=== PATIENT | female | born 1965 | race Two or more races ===

== ENCOUNTER 2017-07-17 16:52 | Emergency (ER) | payer MEDICAID, OTHER ==
[~2017-07-17] VITALS: Ht 157.5 cm; Wt 49.9 kg
[2017-07-17] MEDS ORDERED: Morphine Sulfate 4mg/ml Inj IVP ONE (18:15)
--- NOTE | 2017-07-17 18:19 | Emergency Room Report ---
History of Present Illness General Chief Complaint: Abdominal Pain Source: Patient Present Illness HPI 52yo F Complaint of abdominal pain and diarrhea for the past 2 days She recently had flu symptoms with myalgias and cough which have now resolved a few days ago She reports nausea but no vomiting She reports her abdominal pain is diffuse and crampy and constant She denies recent antibiotic use or change medications She reports no shortness of breath or chest pain or current myalgias She also denies urinary symptoms or back pain and denies leg pain or leg swelling She denies SEP or estrogen use or recent travel Allergies: Coded Allergies: No Known Allergies (Unverified , 07/17/17) Patient History Past Medical History: see triage record Last Menstrual Period: 1 month Now: No Reviewed Nursing Documentation: PMH: Agreed, PSxH: Agreed Nursing Documentation-PMH Past Medical History: No Stated History Review of Systems All Other Systems: negative except mentioned in HPI Physical Exam Vital Signs Date Time Temp Pulse Resp B/P (MAP) Pulse Ox O2 Delivery O2 Flow Rate FiO2 07/17/17 17:00 98.2 87 20 112/72 99 Room Air Sp02 EP Interpretation: reviewed, normal General Appearance: no apparent distress, alert, non-toxic Head: normocephalic Eyes: bilateral eye normal inspection, bilateral eye PERRL, bilateral eye EOMI ENT: normal ENT inspection, hearing grossly normal, normal pharynx, no angioedema, normal voice, dry mucus membranes Neck: normal inspection, full range of motion, supple, supple/symm/no masses Respiratory: chest non-tender, lungs clear, normal breath sounds, chest symmetrical, palpation of chest normal Cardiovascular #1: normal peripheral pulses, regular rate, rhythm Cardiovascular #2: 2+ radial (R), 2+ radial (L) Gastrointestinal: normal inspection, non tender, soft, no mass, no guarding - patient with luntary guarding and diffuse nderness but no focal tenderness and no rebound, no rebound Rectal: deferred Genitourinary: normal inspection, no CVA tenderness Musculoskeletal: back normal, gait/station normal, normal range of motion, non- tender, no calf tenderness Neurologic: alert, responsive, sterile processing technologist III-XII nml as tested, motor strength/tone normal, sensory intact, speech normal Psychiatric: judgement/insight normal, memory normal, mood/affect normal, no suicidal/homicidal ideation Skin: normal color, no rash, warm/dry, normal turgor Lymphatic: no adenopathy Medical Decision Making Reaction to Intervention: Improved Diagnostic Impression: Primary Impression: Dehydration Additional Impression: Abdominal pain ER Course Patient with very unremarkable evaluation today Diffuse abdominal pain tenderness Normal exam and imaging Rhythm Strip Diag. Results Rhythm Strip Time: 18:18 EP Interpretation: yes Rate: 93 Rhythm: NSR, no PVC's, no ectopy CT/MRI/US Diagnostic Results CT/MRI/US Diagnostic Results : Imaging Test Ordered: ct ab pelvis Impression normal appendix, no inflammation or acute findings Last Vital Signs Date Time Temp Pulse Resp B/P (MAP) Pulse Ox O2 Delivery O2 Flow Rate FiO2 07/17/17 17:00 98.2 87 20 112/72 99 Room Air Disposition: HOME, SELF-CARE Condition: Stable Scripts Dicyclomine Hcl* (BENTYL*) 10 Mg Capsule 10 MG ORAL FOUR TIMES A DAY Y for Abdominal cramps for 10 Days, CAP Prov: MAL DONG M.D 07/17/17 Referrals: NOT CHOSEN [facility]/,REFERRING (PCP) MAL DONG M.D Jul 17, 2017 18:19
[2017-07-17 18:54] LABS: HEMATOCRIT 42.5 % (37.0-47.0); HEMOGLOBIN 14.9 G/DL (12.0-16.0); MEAN CORPUSCULAR VOLUME 93 FL (80-99); PLATELET COUNT 177 K/UL (150-450); RED BLOOD COUNT 4.57 M/UL (4.20-5.40); RED CELL DISTRIBUTION WIDTH 11.3 % (11.6-14.8); WHITE BLOOD COUNT 12.9 K/UL (4.8-10.8)
[2017-07-17 19:15] VITALS: BP 115/74
[2017-07-17 19:21] LABS: ANION GAP 6 mmol/L (5-15); BLOOD UREA NITROGEN 13 mg/dL (7-18); CALCIUM 9.4 MG/DL (8.5-10.1); CARBON DIOXIDE 30 MMOL/L (21-32); CHLORIDE 99 MMOL/L (98-107); POTASSIUM 3.5 MMOL/L (3.5-5.1); SODIUM 135 MMOL/L (136-145)
[2017-07-17 19:31] LABS: ALANINE AMINOTRANSFERASE 36 U/L (12-78); ALBUMIN 3.6 G/DL (3.4-5.0); ALBUMIN/GLOBULIN RATIO 0.9 (1.0-2.7); ALKALINE PHOSPHATASE 41 U/L (46-116); ASPARTATE AMINO TRANSFERASE 24 U/L (15-37); BILIRUBIN,TOTAL 1.3 MG/DL (0.2-1.0)
[2017-07-17 19:32] LABS: BILIRUBIN,DIRECT 0.4 MG/DL (0.0-0.3)
[2017-07-17] MEDS ORDERED: Pantoprazole Inj IVP ONE (20:10)
[2017-07-17] MEDS ORDERED: LORazepam Inj 2mg/ml 1ml IV ONE (20:10)
[2017-07-17 20:14] LABS: APPEARANCE,URINE CLEAR; BILIRUBIN, URINE NEGATIVE (NEGATIVE); GLUCOSE, URINE (UA) NEGATIVE (NEGATIVE); KETONES,URINE NEGATIVE (NEGATIVE); LEUKOCYTE ESTERASE ,URINE 1+ (NEGATIVE); NITRITE,URINE NEGATIVE (NEGATIVE); PH,URINE 5 (4.5-8.0); PROTEIN,URINE 2+ (NEGATIVE); UROBILINOGEN,URINE 1 MG/DL (0.0-1.0)
[2017-07-17 20:26] LABS: COLOR,URINE YELLOW
[2017-07-17 21:00] VITALS: BP 120/78
[2017-07-17] MEDS ORDERED: BENTYL10 MG ORAL (22:10)
[2017-07-17 22:50] VITALS: BP 120/78
[2017-07-17 22:54] VITALS: BP 120/78
--- NOTE | 2017-07-18 11:00 | Diagnostic Imaging Report ---
Clinical Indication: Abdominal pain Technique: No oral contrast utilized, per emergency room physician request IV administration nonionic contrast. Venous phase spiral acquisition obtained through the abdomen and pelvis. Multiplanar reconstructions were generated. Total dose length product 530.08 mGycm. CTDIvol(s) 10.18 mGy. Dose reduction achieved using automated exposure control Comparison: none Findings: The appendix is normal. No evidence of diverticulosis or diverticulitis. There is a single dilated gas-filled loop of small bowel in the left mid abdomen, as well as a few other prominent gas and fluid-filled small bowel loops. No free or loculated intraperitoneal air or fluid. Distal esophagus, stomach, duodenum are unremarkable. The liver, gallbladder, bile ducts, pancreas, spleen, adrenals, kidneys are unremarkable. No retroperitoneal or mesenteric mass or adenopathy. Uterus is retroverted, heterogeneous consistent with fibroid change no adnexal mass. There are bilateral breast implants. Atelectatic changes and/or scarring are seen in the left lung base. The bones are unremarkable except for minimal degenerative change of the lumbosacral junction. Impression: No definite acute process. Minimally prominent scattered small bowel loops are nonspecific Bilateral breast implants Uterine fibroids Left basilar atelectasis and/or scarring. This essentially agrees with the preliminary interpretation provided overnight by [facility] teleradiology service, with minor nonsignificant variation. The CT scanner at [facility] is accredited by the [employer] and the scans are performed using protocols designed to limit radiation exposure to as low as reasonably achievable to attain images of sufficient resolution adequate for diagnostic evaluation.
--- NOTE | 2017-07-18 16:34 | Cardiology Report ---
APPROVED REPORT EKG Measurement Heart [id number] Normal sinus rhythm Nonspecific ST and T wave abnormality Abnormal ECG
== END 2017-07-17 22:54 | disposition home or self-care (01) ==
LOC: EMR 18:15
DX: E86.0 Dehydration (principal); R19.7 Diarrhea, unspecified; R10.9 Unspecified abdominal pain
CPT/HCPCS: 36415; 74177; 80053; 81003; 82248; 83690; 85007; 85025; 93005; 96361; 96374; 96375; 99284; C9113; J2270; J2405; Q9967; S0028

== ENCOUNTER 2017-07-20 08:04 | Emergency (ER) | payer MEDICAID ==
[~2017-07-20] VITALS: Ht 157.5 cm; Wt 49.0 kg
[~2017-07-20 08:04] MED LIST: BENTYL10 MG ORAL
[2017-07-20] MEDS ORDERED: VALACYCLOVIR500 MG ORAL (08:11)
[2017-07-20] MEDS ORDERED: Morphine Sulfate 4mg/ml Inj IVP ONE ×2 (08:15→10:15)
[2017-07-20 08:37] VITALS: BP 113/67
[2017-07-20 09:13] LABS: APPEARANCE,URINE SLIGHTLY CLOUDY; BILIRUBIN, URINE 1+ (NEGATIVE); GLUCOSE, URINE (UA) NEGATIVE (NEGATIVE); KETONES,URINE 1+ (NEGATIVE); LEUKOCYTE ESTERASE ,URINE 1+ (NEGATIVE); NITRITE,URINE NEGATIVE (NEGATIVE); PH,URINE 5 (4.5-8.0); PROTEIN,URINE 3+ (NEGATIVE); UROBILINOGEN,URINE 1 MG/DL (0.0-1.0)
[2017-07-20 09:18] LABS: HEMATOCRIT 37.3 % (37.0-47.0); HEMOGLOBIN 12.8 G/DL (12.0-16.0); MEAN CORPUSCULAR VOLUME 94 FL (80-99); PLATELET COUNT 209 K/UL (150-450); RED BLOOD COUNT 3.95 M/UL (4.20-5.40); RED CELL DISTRIBUTION WIDTH 11.7 % (11.6-14.8); WHITE BLOOD COUNT 8.5 K/UL (4.8-10.8)
[2017-07-20 09:29] LABS: COLOR,URINE YELLOW
[2017-07-20 09:52] LABS: ANION GAP 3 mmol/L (5-15); BLOOD UREA NITROGEN 8 mg/dL (7-18); CALCIUM 9.3 MG/DL (8.5-10.1); CARBON DIOXIDE 32 MMOL/L (21-32); CHLORIDE 100 MMOL/L (98-107); CREATININE 0.8 MG/DL (0.55-1.30); POTASSIUM 2.8 MMOL/L (3.5-5.1); SODIUM 135 MMOL/L (136-145)
[2017-07-20 09:56] LABS: ALANINE AMINOTRANSFERASE 98 U/L (12-78); ALBUMIN 2.7 G/DL (3.4-5.0); ALBUMIN/GLOBULIN RATIO 0.7 (1.0-2.7); ALKALINE PHOSPHATASE 103 U/L (46-116); ASPARTATE AMINO TRANSFERASE 41 U/L (15-37); BILIRUBIN,TOTAL 0.9 MG/DL (0.2-1.0)
[2017-07-20 10:44] VITALS: BP 116/68
--- NOTE | 2017-07-20 11:20 | Emergency Room Report ---
History of Present Illness General Chief Complaint: Abdominal Pain Source: Patient Present Illness HPI Patient presents with complaints of significant epigastric abdominal pain Right upper quadrant pain Patient previously had multiple episodes of diarrhea and vomiting She reports that her diarrhea has subsided She feels nauseous And feels a burning sensation in the epigastric coming up to the mid esophageal Patient was put on Tamiflu by her primary physician after being discharged from the hospital here Patient feels that her epigastric pain has worsened Denies any neck pain or photophobia patient feels generally ill With pain in the epigastric area provide some pleuritic discomfort in the right upper quadrant as well Allergies: Coded Allergies: No Known Allergies (Unverified , 07/17/17) Patient History Past Medical History: see triage record Pertinent Family History: none Last Menstrual Period: Six weeks ago - Perimenopausal Now: No Reviewed Nursing Documentation: PMH: Agreed, PSxH: Agreed Review of Systems All Other Systems: negative except mentioned in HPI Physical Exam Vital Signs Date Time Temp Pulse Resp B/P (MAP) Pulse Ox O2 Delivery O2 Flow Rate FiO2 07/20/17 08:06 99.1 102 18 113/67 96 Room Air Sp02 EP Interpretation: reviewed, normal General Appearance: mild distress - Appears uncomfortable Head: normocephalic, atraumatic Eyes: bilateral eye PERRL, bilateral eye EOMI ENT: hearing grossly normal, normal pharynx, no angioedema Neck: full range of motion, supple, thyroid normal Respiratory: lungs clear, no rhonchi Cardiovascular #1: regular rate, rhythm, no edema Gastrointestinal: non tender - However subjectively points to the epigastric region and right upper quadrant, soft, no mass Musculoskeletal: normal inspection Neurologic: alert, oriented x3, responsive Skin: normal color, no rash, warm/dry Lymphatic: no adenopathy Medical Decision Making Diagnostic Impression: Primary Impression: Abdominal pain Additional Impression: Pleurisy ER Course With the patient's history and examination, multiple differentials considered, including but not limited to , ectopic , ovarian torsion, gastritis, cholecystitis, pancreatitis, appendicitis Patient awoke reveals mildly elevated liver function test Potassium was also low patient is hydrated Potassium replaced orally Pain medication provided CAT scan imaging was not repeated Patient's pleurisy and discomfort is mainly right upper quadrant, the patient's atelectasis on the CAT scan was showing on the left side so clinically does not correlate Ultrasound was negative Patient does continue to appear uncomfortable My consideration for pulmonary embolism is low, patient is not tachycardic does not have any recent procedures swelling, has very low score for probability At this time will have continued inpatient followup at [facility] Labs Test 07/20/17 08:20 07/20/17 08:30 Urine Color Yellow Urine Appearance Slightly cloudy Urine pH 5 (4.5-8.0) Urine Specific [place] 1.020 (1.005-1.035) Urine Protein 3+ (NEGATIVE) Urine Glucose (UA) Negative (NEGATIVE) Urine Ketones 1+ (NEGATIVE) Urine Occult Blood 2+ (NEGATIVE) Urine Nitrite Negative (NEGATIVE) Urine Bilirubin 1+ (NEGATIVE) Urine Ictotest Negative Urine Urobilinogen 1 MG/DL (0.0-1.0) Urine Leukocyte Esterase 1+ (NEGATIVE) Urine RBC 2-4 /HPF (0 - 2) Urine WBC 2-4 /HPF (0 - 2) Urine Squamous Epithelial Cells Many /LPF (NONE/OCC) Urine Bacteria Few /HPF (NONE) White Blood Count 8.5 K/UL (4.8-10.8) Red Blood Count 3.95 M/UL (4.20-5.40) Hemoglobin 12.8 G/DL (12.0-16.0) Hematocrit 37.3 % (37.0-47.0) Mean Corpuscular Volume 94 FL (80-99) Mean Corpuscular Hemoglobin 32.4 PG (27.0-31.0) Mean Corpuscular Hemoglobin Concent 34.4 G/DL (32.0-36.0) Red Cell Distribution Width 11.7 % (11.6-14.8) Platelet Count 209 K/UL (150-450) Mean Platelet Volume 8.6 FL (6.5-10.1) Neutrophils (%) (Auto) % (45.0-75.0) Lymphocytes (%) (Auto) % (20.0-45.0) Monocytes (%) (Auto) % (1.0-10.0) Eosinophils (%) (Auto) % (0.0-3.0) Basophils (%) (Auto) % (0.0-2.0) Differential Total Cells Counted 100 Neutrophils % (Manual) 90 % (45-75) Lymphocytes % (Manual) 5 % (20-45) Monocytes % (Manual) 5 % (1-10) Eosinophils % (Manual) 0 % (0-3) Basophils % (Manual) 0 % (0-2) Band Neutrophils 0 % (0-8) Platelet Estimate Adequate Platelet Morphology Normal Red Blood Cell Morphology Normal Sodium Level 135 MMOL/L (136-145) Potassium Level 2.8 MMOL/L (3.5-5.1) Chloride Level 100 MMOL/L (98-107) Carbon Dioxide Level 32 MMOL/L (21-32) Anion Gap 3 mmol/L (5-15) Blood Urea Nitrogen 8 mg/dL (7-18) Creatinine 0.8 MG/DL (0.55-1.30) Estimat Glomerular Filtration Rate > 60 mL/min (>60) Glucose Level 130 MG/DL (74-106) Calcium Level 9.3 MG/DL (8.5-10.1) Total Bilirubin 0.9 MG/DL (0.2-1.0) Aspartate Amino Transf (AST/SGOT) 41 U/L (15-37) Alanine Aminotransferase (ALT/SGPT) 98 U/L (12-78) Alkaline Phosphatase 103 U/L (46-116) Total Protein 6.7 G/DL (6.4-8.2) Albumin 2.7 G/DL (3.4-5.0) Globulin 4.0 g/dL Albumin/Globulin Ratio 0.7 (1.0-2.7) Lipase 62 U/L (73-393) CT/MRI/US Diagnostic Results CT/MRI/US Diagnostic Results : Impression CT abdomen pelvis 07/17/2017:Impression: No definite acute process. Minimally prominent scattered small bowel loops are nonspecific Bilateral breast implants Uterine fibroids Left basilar atelectasis and/or scarring. Abdominal ultrasound no acute disease Last Vital Signs Date Time Temp Pulse Resp B/P (MAP) Pulse Ox O2 Delivery O2 Flow Rate FiO2 07/20/17 10:49 99.1 07/20/17 10:44 72 16 116/68 95 Room Air Status: improved Disposition: XFER SHT-TRM HOSP Condition: Serious Referrals: [facility],REFERRING (PCP) OWEN CHICAS D.O. Jul 20, 2017 11:19
[2017-07-20] MEDS ORDERED: Hydromorphone 0.5mg/0.5ml inj IVP ONE (11:30)
[2017-07-20 11:32] VITALS: BP 121/74
[2017-07-20 13:19] VITALS: BP 111/63
[2017-07-20 13:21] VITALS: BP 111/63
--- NOTE | 2017-07-21 09:58 | Diagnostic Imaging Report ---
Indication:Abdominal pain Technique: Grayscale and duplex Doppler imaging of the abdomen performed. Comparison: None Findings: The liver, demonstrated part of the pancreas, gallbladder, aorta and IVC, both kidneys, spleen appear unremarkable. There is no biliary ductal dilatation identified. Doppler evaluation of the main portal vein shows patency. There is no ascites. No hydronephrosis seen. CBD is 4 mm. Impression: No acute findings.
== END 2017-07-20 13:21 | disposition short-term general hospital (02) ==
LOC: EMR 08:30
DX: R09.1 Pleurisy (principal); R10.9 Unspecified abdominal pain; D25.9 Leiomyoma of uterus, unspecified; J98.11 Atelectasis; R79.89 Other specified abnormal findings of blood chemistry; E87.6 Hypokalemia
CPT/HCPCS: 36415; 76700; 80053; 81003; 83690; 85007; 85025; 96361; 96374; 96375; 96376; 99284; J1170; J2270; J2405; J2550; S0028; J8499